=== PATIENT | male | born 1970 | race Caucasian/White ===

== ENCOUNTER 2018-09-15 11:02 | Emergency (ER) | payer SELFPAY ==
[2018-09-15 11:11] VITALS: BP 147/66; TEMP 98.1; O2SAT 99
--- NOTE | 2018-09-15 11:24 | ED.PDOC ---
History of Present Illness - General Chief Complaint: Upper Extremity Injury Stated Complaint: L bicep injury Time Seen by Provider: 09/15/18 11:21 Source: patient Exam Limitations: no limitations - History of Present Illness Initial Comments: the patient a 47-year-old male presenting to the emergency room secondary topain in his left upper arm. The patient was just skiing when he was thrown off and fully extend that arm while biceps muscle was contracted. It appears that the biceps muscle detached at its inferior tendon. The muscle is balled up proximally. He does have full range of motion of the upper extremity both actively and passively. No significant bruising has to the surface at this point. He does appear to be neurovascularly intact. No other injuries. Timing/Duration: 1-3 hours Severity: moderate Improving Factors: immobilization Worsening Factors: movement Associated Symptoms: denies symptoms Allergies/Adverse Reactions: Allergies NO KNOWN ALLERGY Allergy (Verified 09/15/18 11:11) Home Medications: Ambulatory Orders Tramadol HCl 50 mg PO Q8HR PRN #20 tab 09/15/18 Review of Systems - Review of Systems Constitutional: States: no symptoms reported EENTM: States: no symptoms reported Respiratory: States: no symptoms reported Cardiology: States: no symptoms reported Gastrointestinal/Abdominal: States: no symptoms reported Genitourinary: States: no symptoms reported Musculoskeletal: States: see HPI Skin: States: no symptoms reported Neurological: States: no symptoms reported Endocrine: States: no symptoms reported All other Systems: No Change from Baseline Past Medical History (General) - Patient Medical History Hx Stroke: No Hx Congestive Heart Failure: No Hx Diabetes: No Hx MRSA: No - Vaccination History Hx Influenza Vaccination: No Hx Pneumococcal Vaccination: No - Social History Hx Tobacco Use: No Hx Alcohol Use: Yes - Infrequent Family Medical History - Family History Father Family History: No Known Living Status: Still Living Physical Exam - Physical Exam General Appearance: Alert, No apparent distress Eye Exam: bilateral normal Ears, Nose, Throat: hearing grossly normal, normal ENT inspection Neck: full range of motion, supple Respiratory: no respiratory distress, no accessory muscle use Cardiovascular/Chest: normal peripheral pulses, no edema, other - regular rate Peripheral Pulses: radial,right: 2+, radial,left: 2+ Rectal Exam: deferred Extremity: normal range of motion, no pedal edema, normal capillary refill, other - see history of present illness 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 The patient will be placed in a sling. He will be written for tramadol for as needed use and he can use Aleve additionally if needed. He does need to contact an orthopedist tomorrow to get set up for an evaluation to see if he would be a good candidate for a repair. He is neurovascularly intact and passive and active range of motion are preserved. ER warnings were given. He should expect some bruising to develop over the next few days. Departure - Departure Clinical Impression: Rupture of biceps tendon, traumatic Qualifiers: Encounter type: initial encounter Laterality: left Qualified Code(s): S46.212A - Strain of muscle, fascia and tendon of other parts of biceps, left arm, initial encounter Disposition: Discharge to Home or Self Care Condition: Fair Departure Forms: ED Discharge - Pt. Copy, Patient Portal Self Enrollment Diet: regular diet Activity: no pushing/pulling with affected limb Prescriptions: Tramadol HCl 50 mg PO Q8HR PRN #20 tab PRN Reason: Moderate Pain Home Medications: Ambulatory Orders Tramadol HCl 50 mg PO Q8HR PRN #20 tab 09/15/18 Additional Instructions: the patient is a 47-year-old male presenting to the emergency room with what appears to be a lower left biceps tendon rupture, due to trauma. The patient will be placed in a sling. He will be written for tramadol for as need ed use and he can use Aleve additionally if needed. He does need to contact an orthopedist tomorrow to get set up for an evaluation to see if he would be a good candidate for a repair. He is neurovascularly intact and passive and active range of motion are preserved. ER warnings were given. He should expect some bruising to develop over the next few days.
== END 2018-09-15 11:45 | disposition home or self-care (01) ==
LOC: ER 11:02
DX: S46.212A Strain of muscle, fascia and tendon of other parts of biceps, left arm, initial encounter (principal); X50.9XXA Other and unspecified overexertion or strenuous movements or postures, initial encounter; Y93.17 Activity, water skiing and wake boarding; Y92.9 Unspecified place or not applicable